=== PATIENT | female | born 1990 | race Caucasian/White ===

== ENCOUNTER → 2021-12-17 | Outpatient (CLI) | payer SELFPAY ==
[2021-12-17 15:17] LABS: Amphetamine Urine VISTA NEGATIVE (<1000 ng/mL); Barbiturate Urine VISTA NEGATIVE (< 200 ng/mL); Benzodiazepine Urine VISTA NEGATIVE (< 200 ng/mL); Cocaine Urine VISTA NEGATIVE (< 300 ng/mL); Ecstacy Urine VISTA NEGATIVE (< 500 ng/mL); Methadone Urine VISTA NEGATIVE (< 300 ng/mL); PCP Urine VISTA NEGATIVE (< 25 ng/mL); THC Urine VISTA NEGATIVE (< 50 ng/mL); Vista UDS pH Range 7
[2021-12-19 22:06] LABS: Chlamydia By Nucleic Acid AMP Negative (Negative)
[2021-12-20 14:55] LABS: Gonococcus By Nucleic Acid AMP Negative (Negative)
[2021-12-23 15:40] LABS: HPV APTIMA, High Risk Negative (Negative)
== END | disposition home or self-care (01) ==
LOC: LABSPEC 12-21 15:51
PROVIDERS: PCP Family Medicine; Referring Provider Obstetrics & Gynecology; Visit Provider Obstetrics & Gynecology
DX: Z34.90 Encounter for supervision of normal pregnancy, unspecified, unspecified trimester (principal)
CPT/HCPCS: 80307; 87077; 87086; 87088; 87186; 87491; 87591; 87624; 88175; G0145

== ENCOUNTER → 2022-01-03 | Outpatient (CLI) | payer SELFPAY | END | disposition home or self-care (01) | LOC: LABSPEC 13:07 | PROVIDERS: PCP Family Medicine; Referring Provider Nurse Practitioner Women's Health; Visit Provider Nurse Practitioner Women's Health | DX: R30.0 Dysuria (principal) | CPT/HCPCS: 87077; 87086; 87088; 87186 ==

== ENCOUNTER → 2022-01-15 | Outpatient (CLI) | payer SELFPAY ==
[2022-01-15 09:36] LABS: Absolute Neutrophil Count 5.5 X10^3/uL (2.0-7.7); Basophil# 0.01 X10^3/uL; Basophil% 0.1 % (0-1); Eosinophils% 1.3 % (0-5); Hematocrit 38.3 % (37-47); Hemoglobin 13.1 g/dL (12.0-15.0); Lymphocyte % 22.8 % (19-41); Mean Corp Hgb Conc 34.2 g/dL (32-36); Mean Corpuscular Hgb 30.8 pg (27.0-32.0); Mean Corpuscular Volume 90.1 fL (81-99); Mean Platelet Vol. 8.9 fl (6.2-12.0); Monocyte# 0.46 X10^3/uL; Monocyte% 5.8 % (0-10); NRBC Flagged by Analyzer 0 % (0-5); Neutrophil # 5.47 X10^3/uL (2.7-7.7); Neutrophil % 69.5 % (47-70); Platelet Count 256 K/mm3 (150-450); RBC Distribution Width CV 12.9 % (11.6-14.6); RBC Distribution Width SD 42.5 fl (35.1-43.9); Red Blood Count 4.25 M/mm3 (4.2-5.4); White Blood Count 7.9 K/mm3 (4.4-11.0)
[2022-01-15 10:54] LABS: HIV - WCH Non-Reactive (Nonreactive); Hepatitis B Surface Antigen Non-Reactive (Nonreactive); Hepatitis C Antibody Non-Reactive (Nonreactive); Rubella IgG Reactive (Nonreactive); Syphilis Antibodies Non-reactive
== END | disposition home or self-care (01) ==
LOC: PAVLAB 09:04
PROVIDERS: PCP Family Medicine; Referring Provider Obstetrics & Gynecology; Visit Provider Obstetrics & Gynecology
DX: Z34.90 Encounter for supervision of normal pregnancy, unspecified, unspecified trimester (principal)
CPT/HCPCS: 36415; 85025; 86703; 86762; 86780; 86803; 86850; 86900; 86901; 87340

== ENCOUNTER → 2022-02-13 | Outpatient (CLI) | payer SELFPAY ==
--- NOTE | 2022-02-13 12:53 | US_ITS ---
STUDY: SECOND AND THIRD TRIMESTER OBSTETRICAL ULTRASOUND - LIMITED REASON FOR EXAM: Female, 31 years old. Vaginal bleeding. cervical length PRIOR ULTRASOUND: None. TECHNIQUE: Transvaginal TECHNICAL QUALITY: Adequate. FINDINGS: There is a single intrauterine fetus. There is demonstrated cardiac activity with a heart rate of 144 bpm. There is a normal amniotic fluid cannot be seen. The placenta cannot be seen. The cervix measures cm in length: 3. In the lower uterine segment, near the internal cervical os, there is a 20 x 17 mm blot clot. Age by LMP: 17 weeks, 6 days. ASTRID by LMP: 11.24.22. US/Transvaginal w/Preg US IMPRESSION: There is a single live intrauterine with a heart rate of 144 bpm. In the lower uterine segment, near the internal cervical os, there is a 20 x 17 mm blot clot. The cervix measures cm in length: 3. Electronically Signed: Lawrence Bingham MD at 17:32 EDT ,
== END | disposition home or self-care (01) ==
PROVIDERS: PCP Family Medicine; Referring Provider Obstetrics & Gynecology; Visit Provider Obstetrics & Gynecology
DX: Z34.80 Encounter for supervision of other normal pregnancy, unspecified trimester (principal)
CPT/HCPCS: 76817

== ENCOUNTER → 2022-02-22 | Outpatient (CLI) | payer SELFPAY ==
--- NOTE | 2022-02-22 13:21 | US_ITS ---
STUDY: SECOND AND THIRD TRIMESTER OBSTETRICAL ULTRASOUND REASON FOR EXAM: Female, 31 years old anatomy LMP: 10/11/2021. TECHNIQUE: Transabdominal and Transvaginal TECHNICAL QUALITY: Adequate. PRIOR ULTRASOUND: Comparison is made with prior study dated 02/13/2022. FINDINGS: There is a single intrauterine fetus. The fetus is in a variable presentation. There is demonstrated cardiac activity with a heart rate of 131 bpm. There is a normal amniotic fluid volume. The largest amniotic fluid pocket measures 6 cm x 4.3 cm. The amniotic fluid index (KELLY) is within normal limits. The placenta is anterior in location and is not low lying. There are Grade 0 placental changes. The cervix measures 4.8 sign in length. The bilateral adnexal regions are normal. BIOMETRY: BPD: 4.7 cm: 20 weeks, 1 days HC: 17.5 cm: 20 weeks, 0 days AC: 15.3 cm: 20 weeks, 3 days FL: 3.3 cm: 20 weeks, 1 days CI: 78% FL/BPD: 69% FL/HC: FL/AC: 21% HC/AC: 1.15 age by current US: 19 weeks, 6 days. ASTRID by current US: 07/13/2022. Estimated weight: 348 grams, +/- 52 grams, 96 %. age by prior US: 19 weeks, 1 days. ASTRID by prior US: 07/18/2022. Age by LMP: 19 weeks, 1 days. ASTRID by LMP: 07/18/2022. ANATOMY: Gender: Male Cranium: Normal lateral ventricles. Normal choroid plexus. Normal cerebellum. Normal cisterna magna. Normal face, nose and lips. Chest: Normal 4-chamber heart. Abdomen/Pelvis: Normal diaphragm. Normal stomach. Normal abdominal wall. Normal cord insertion. Normal 3 vessel cord. Normal kidneys. Normal bladder. Spine: Normal cervical spine. Normal thoracic spine. Normal lumbar spine. Normal sacrum. Extremities: Normal bilateral upper extremities. Normal bilateral lower extremities. IMPRESSION: Single live intrauterine gestation with mean gestational age of 19 weeks and 6 days. Electronically Signed: Dao Middleton MD at 8:53 EDT , STUDY: FIRST TRIMESTER OBSTETRICAL ULTRASOUND REASON FOR EXAM: Female, 31 years old . Cervical length measurement. LMP: 10/11/2021 TECHNIQUE: Transvaginal TECHNICAL QUALITY: Adequate. PRIOR ULTRASOUND: None. FINDINGS: The cervical length measures 4.8 cm US/OB Anatomy Scan IMPRESSION: Cervical length measures 4.8 cm. Electronically Signed: Dao Middleton MD at 8:54 EDT ,
== END | disposition home or self-care (01) ==
PROVIDERS: PCP Family Medicine; Referring Provider Obstetrics & Gynecology; Visit Provider Obstetrics & Gynecology
DX: Z34.80 Encounter for supervision of other normal pregnancy, unspecified trimester (principal)
CPT/HCPCS: 76805; 76817

== ENCOUNTER 2022-03-24 14:30 | Outpatient (CLI) | payer SELFPAY ==
[2022-03-24] VITALS (23 sets, daily range): BP systolic 101–116; BP diastolic 59–70; PULSE 85–108; RESP 16; TEMP 36.4–37.3; O2SAT 92–100; BMI 30.9
--- NOTE | 2022-03-24 15:10 | US_ITS ---
STUDY: SECOND AND THIRD TRIMESTER OBSTETRICAL ULTRASOUND REASON FOR EXAM: Female, 31 years old Vaginal bleeding TECHNIQUE: Transabdominal PRIOR ULTRASOUND: 02/22/2022 FINDINGS: There is a single intrauterine fetus. The fetus is in a cephalic presentation. There is demonstrated cardiac activity with a heart rate of 145 bpm. There is a normal amniotic fluid volume.. The placenta is anterior. The cervix is closed and measures 3.6 cm in length. US/OB Limited (No Biometrics) IMPRESSION: Living intrauterine with estimated gestational age of 23 weeks and 3 days. Electronically Signed: Graham Lemon MD at 18:00 EDT ,
--- NOTE | 2022-03-24 15:46 | OB.TRI.HP_ITS ---
HPI - General General Date of Admission: 03/24/22 HPI Narrative PEEWEE ROBERTSON, is a 31 y/o @ 23 weeks 3 days who presents to L&D with vaginal bleeding. She has had on and off bleeding during her . at 18 week scan there was a clot in the cervix which was resolved by ultrasound her 20 week scan. The cervical length at that time was 4.8 cm. She currently denies heavy bleeding, cramping, or leaking fluid. She has pink mucous discharge only. Maternal Data Information ASTRID Calculator Estimated Delivery Date Method Current WG Current Estimate 07/18/22 LMP (Certain) 23w 3d PFSH PFSH Medical History Positive GBS test Home Medications prenat.vits,timbo,hvv-[id number]-azoqi 1 tab PO DAILY 12/04/21 [History Last Taken Unknown] meclizine 25 mg tablet 25 mg PO TID PRN nausea and vomiting #30 tabs 01/15/22 [Rx Last Taken Unknown] levothyroxine 25 mcg tablet 25 mcg PO DAILY hypothyroid 03/15/22 [History Last Taken Unknown] Allergy/AdvReac Type Severity Reaction Status Date / Time No Known Allergies Allergy Verified 02/12/22 08:57 Family History Brother Diabetes, Onset Age: 9 DM 1 Social History adopted: No household members: spouse and children number of children: 1 current occupational status: employed current occupation: [employer] pets and animals: Yes pets and animals: dog(s) Smoking Status: Never smoker alcohol intake: never substance use type: does not use do you feel safe at home: Yes additional social history: Spouse: Diony Hernandez History 2 Elective abortions Hx Para 1 Spontaneous abortions Hx # Term Pregnancies Ectopic pregnancies Hx # Pregnancies Multiple births # of living children 1 Past Pregnancies Del. Date Name GA/Weeks Outcome Route Bth Weight Gen Labor Lgth Anesthesia Del Locatn Provider FOB Unknown 11/25/19 Chela Hernandez 40 8# 10 oz Female epidural Tammy Vora Delivery Date: Last Updated by: Marcie Contreras MD IOL at 40 wk. FTP; 30 hr of labor. 8 cm. asynclitic. Visit Details Expected Delivery Route/Plan considering TOLAC if spontaneous labor patient counseled regarding risks/benefits of trial of labor versus repeat . ACOG/uptodate education given to patient. [] % likelihood of success per calculator TOLAC consent form signed: [] Plans Covid status: discussed Flu vaccine: discussed Tdap vaccine: [] Rhogam: [] LARC form signed: [] Problem list reviewed and updated with the most current plan of care details and appropriate orders placed. Relevant counseling for the gestational age provided. Continue routine care and follow up unless otherwise noted in visit notes/problem list details OB Flowsheet Initial Weight: Not Recorded Date -?-?-?-?-?-?-?-?-?-?-?-?- EGA Weight BP Urine Prot -?-?-?-?-?-?-?-?-?-?-?-?- Glucose FHR FuHt Pres Dilation -?-?-?-?-?-?-?-?-?-?-?-?- Effaced St Visit Note 12/17/21 -?-?-?-?-?-?-?-?-?-?-?-?- 9w 4d 167 lb 122/80 -?-?-?-?-?-?-?-?-?-?-?-?- 184 -?-?-?--?-?-?-?-?-?-?-?-?- SM- CRL 2.9cm co ns with LMP 01/15/22 -?-?-?-?-?-?-?-?-?-?-?-?- 13w 5d 172 lb 104/62 -?-?-?-?-?-?-?-?-?-?-?-?- 160 -?-?-?-?-?-?-?-?-?-?-?-?- SM- discussed me clizine 02/12/22 -?-?-?-?-?-?-?-?-?-?-?-?- 17w 5d 177 lb 2 oz 177 lb 2 oz 110/72 Negative -?-?-?-?-?-?-?--?-?-?-?-?- Negative 157 0 -?-?-?-?-?-?-?-?-?-?-?-?- JV- pt presents with some spotting and mucous discarge. She denies cramping. on exam she has some old dark blood in vault that has turned a brown/pink color with some mucous present. JV- pt presents with some sp otting and mucous discarge. She denies cramping. on exam she has some old dark blood in vault that has turned a brown/pink color with some mucous present. patient to call [facility] radiology to try to get in sooner for CL. 03/15/22 -?-?-?-?-?-?-?-?-?-?-?-?- 22w 1d 173 lb 112/71 Negative -?-?-?-?-?-?-?-?-?-?-?-?- Negative 150 22 -?-?-?-?-?-?-?-?-?-?-?-?- SM- no vb lof go od fm no regular ctx ROS Constitutional Constitutional: Reports systems reviewed and no addt'l complaints, except as documented Gastrointestinal Gastrointestinal: Denies bloating, constipation, cramping, diarrhea, nausea or vomiting Genitourinary Genitourinary: Reports other Details: Denies vaginal odor, vaginal bleeding, or vaginal discharge ; Denies difficulty urinating or flank pain Physical Exam HEENT normocephalic Resp normal respiratory effort and normal air movement GI Palpation: soft; Negative for tender Rectal Exam: deferred no CVA tenderness Speculum Exam - Cervix: cervical os open, cervical bleeding, mucoid cervix and other cx 2/0/thigh ; Negative for cervical laceration Extremity normal to inspection General Extremity: edema bilateral (trace ) NST FHR Rate Baby A Baseline: 140 Variability:: Moderate Accelerations:: 15 x 15 Decelerations:: None NST Reactive:: Yes FHR Category:: Category I Assessment & Plan (1) Threatened labor: (2) UTI in : COMMENT: +UA. Rx macrobid. Culture pending (3) Positive GBS test: COMMENT: treat in labor (4) Supervision of other normal : COMMENT: PRR ASTRID:07/18/22 boy PC: Chela. Spouse:Diony Hernandez (5) : QUALIFIERS: Weeks of gestation: 17 weeks Qualified Code(s): Z3A.17 - 17 weeks gestation of COMMENT: declined genetic and carrier screen. nl anatomy (6) History of : COMMENT: FTP 8 cm, plan TOLAC if spontaneous labor, if not then RLTCS PLAN: Plan plan to order tv ultrasound now to compare CL fro 20 week scan as discussed with Dr. Khan at [facility], start magnesium bolus followed by 2g/hr, abx, and [facility] transport to [facility] triage/ L&D Charges/Coding Multi Select Codes Visit Charges Office Visit/Consults: 29102 OV L3 Est Urinary/Genital Urinary/Genital CPT Codes: 58539-46 non-stress test Interp
[2022-03-24] MEDS: Lactated Ringers 1,000 ML 50 ML IV (16:18)
[2022-03-24] MEDS: Betamethasone/Betamethasone 30 MG/5 ML Vial 12 MG IM (16:25)
[2022-03-24 16:39] LABS: Absolute Lymphocyte Count 1.31 X10^3/uL (0.83-4.51); Absolute Neutrophil Count 9.5 X10^3/uL (2.0-7.7); Basophil# 0.02 X10^3/uL; Basophil% 0.2 % (0-1); Eosinophil# 0.08 X10^3/uL; Eosinophils% 0.7 % (0-5); Hematocrit 35.9 % (37-47); Hemoglobin 12.3 g/dL (12.0-15.0); Lymphocyte # 1.31 X10^3/ul (0.83-4.51); Lymphocyte % 11.2 % (19-41); Mean Corp Hgb Conc 34.3 g/dL (32-36); Mean Corpuscular Volume 93.5 fL (81-99); Mean Platelet Vol. 8.8 fl (6.2-12.0); Monocyte# 0.68 X10^3/uL; Monocyte% 5.8 % (0-10); NRBC Flagged by Analyzer 0 % (0-5); Neutrophil # 9.53 X10^3/uL (2.7-7.7); Neutrophil % 81.4 % (47-70); Platelet Count 289 K/mm3 (150-450); RBC Distribution Width CV 13.1 % (11.6-14.6); RBC Distribution Width SD 44.8 fl (35.1-43.9); Red Blood Count 3.84 M/mm3 (4.2-5.4); White Blood Count 11.7 K/mm3 (4.4-11.0)
[2022-03-24 16:48] LABS: ALB/GLOB Ratio 0.7 RATIO (0.9-2.4); AST(SGOT) 16 U/L (15-37); Alanine Aminotransfer ALT/SGPT 16 U/L (13-56); Albumin, Serum 2.8 g/dL (3.2-5.0); Alkaline Phosphatase 90 U/L (45-117); Anion Gap 7 (5-15); BUN 9 mg/dL (7-18); Calcium,Total 9.1 mg/dL (8.5-10.1); Chloride 109 mmol/L (98-107); Creatinine, Serum 0.69 mg/dL (0.55-1.02); EST Glomerular Filtration Rate 103 mL/min (>60); Est Glom Filt Rate - Afr Amer 125 mL/min (>60); Estimated Creatinine Clearance 104.35 ml/min; Globulin 4.2 g/dL (2.2-4.2); Glucose 90 mg/dL (74-106); Potassium 3.7 mmol/L (3.5-5.1); Sodium Level 139 mmol/L (136-145)
[2022-03-24 16:57] LABS: Fibrinogen 488 mg/dl (203-444)
[2022-03-24] MEDS: Magnesium Sulfate 4gm/100mL 4 GM/100 ML IV.SOLN. IV (17:09)
[2022-03-24] MEDS: Magnesium Sulfate 20 GM/500 ML BAG IV (17:36)
--- NOTE | 2022-03-24 17:52 | NURSING ---
Report given to Barbara Cabral at [facility] at this time.
== END 2022-03-24 18:30 | disposition short-term general hospital (02) ==
LOC: WPOUT 14:37 → WP 14:38
PROVIDERS: PCP Family Medicine; Visit Provider Obstetrics & Gynecology
DX: O47.02 False labor before 37 completed weeks of gestation, second trimester (principal); O23.42 Unspecified infection of urinary tract in pregnancy, second trimester; Z79.899 Other long term (current) drug therapy; Z3A.23 23 weeks gestation of pregnancy
CPT/HCPCS: 96367; 36415; 59025; 59050; 76815; 80053; 85025; 85384; 86850; 86900; 86901; 96365; 96366; 96372; 99218; J7120; G0378; J0702